=== PATIENT | female | born 1995 | race African-American/Black ===

== ENCOUNTER 2017-07-25 10:40 | Emergency (ER) | payer SELFPAY | END 2017-07-25 13:00 | disposition left against medical advice (07) | LOC: ERS 10:40 | DX: Z53.21 Procedure and treatment not carried out due to patient leaving prior to being seen by health care provider (principal) | CPT/HCPCS: 87081; 87430; 87804 ==

== ENCOUNTER 2018-02-19 08:53 | Emergency (ER) | payer SELFPAY ==
[2018-02-19 09:40] LABS: Bilirubin Negative (Negative); Blood, Urine Negative (Negative); Clarity CLEAR (Clear); Glucose, Urine (Dipstick) Negative (Negative); Leukocyte Small (Negative); Nitrite Negative (Negative); Protein, Urine (Dipstick) Negative (Neg-Trace); Specific Gravity, Urine 1.035 (1.002-1.036); Urobilinogen 0.2 mg/dL (0.2-1.0); pH, Urine 5.5 (5.0-9.0)
[2018-02-19 09:43] LABS: Bacteria/HPF None Seen HPF (None Seen); Hyaline Casts/LPF 0-3 HYALINE CAST LPF (0-3 Hyaline); Pathc Cast-AUWi Flag 0.29 (0-2.49); Pregnancy Test - Urine (BHCG) Negative (Negative); Pregu Control Background? CLEAR/WHITE (CLR/WHITE); Pregu Control Bar Appear? YES (CONTROL BAR); RBC/HPF 0-3 HPF (0-3); Specific Gravity 1.035 (1.002-1.036); Squamous Epithelial 0-3 HPF (0-3)
== END 2018-02-19 10:42 | disposition home or self-care (01) ==
LOC: ERS 08:53
DX: K21.9 Gastro-esophageal reflux disease without esophagitis (principal); F41.9 Anxiety disorder, unspecified; F31.9 Bipolar disorder, unspecified
CPT/HCPCS: 81003; 81015; 81025; 99284

== ENCOUNTER 2018-05-22 16:51 | Emergency (ER) | payer SELFPAY ==
--- NOTE | 2018-05-22 18:27 | RAD ---
RADIOGRAPH LEFT KNEE 4 VIEWS: 05/22/18 HISTORY: 23-year-old female with pain and swelling for two days. FINDINGS: Joint spaces are maintained without erosions or osteophytes. There is no periostitis. No osteolytic, osteoblastic or permeative lesion. No joint effusion or significant edema in Hoffa's fat pad. No soft tissue calcifications or subcutaneous emphysema. IMPRESSION: Normal. POS: CET
== END 2018-05-22 18:49 | disposition home or self-care (01) ==
LOC: ERS 16:51
DX: M25.562 Pain in left knee (principal); F31.9 Bipolar disorder, unspecified

== ENCOUNTER 2018-11-16 23:16 | Emergency (ER) | payer SELFPAY ==
[2018-11-17] MEDS ORDERED: Fluorescein Opthalmic Strip ONE (00:02)
[2018-11-17] MEDS ORDERED: Proparacaine 0.5% Opth 15 ML BOT ONE (00:02)
[2018-11-17] MEDS ORDERED: Atropine Sulfate 1% Ophth Soln 5 ml Bottle L EYE SCH (01:00)
== END 2018-11-17 01:22 | disposition home or self-care (01) ==
LOC: ERS 23:16
DX: H20.9 Unspecified iridocyclitis (principal); F31.9 Bipolar disorder, unspecified
CPT/HCPCS: 99282

== ENCOUNTER 2019-01-08 17:57 | Emergency (ER) | payer BC | END 2019-01-08 19:31 | disposition home or self-care (01) | LOC: ERS 17:57 | DX: R21 Rash and other nonspecific skin eruption (principal); F31.9 Bipolar disorder, unspecified | CPT/HCPCS: 99282 ==

== ENCOUNTER 2019-01-25 17:35 | Emergency (ER) | payer BC | END 2019-01-25 17:51 | disposition home or self-care (01) | LOC: ERS 17:35 | DX: M79.89 Other specified soft tissue disorders (principal); F31.9 Bipolar disorder, unspecified | CPT/HCPCS: 99281 ==

== ENCOUNTER 2019-02-28 17:37 | Emergency (ER) | payer SELFPAY | END 2019-02-28 19:46 | disposition left against medical advice (07) | LOC: ERS 17:37 | DX: Z53.21 Procedure and treatment not carried out due to patient leaving prior to being seen by health care provider (principal) ==

== ENCOUNTER 2019-03-21 09:45 | Emergency (ER) | payer OTHER, SELFPAY ==
[2019-03-21 11:25] LABS: Bilirubin Negative (Negative); Blood, Urine Negative (Negative); Clarity Clear (Clear); Glucose, Urine (Dipstick) Normal (Negative); Leukocyte 500 Leu/uL (Negative); Nitrite Negative (Negative); Pregnancy Test - Urine (BHCG) Negative (Negative); Pregu Control Background? CLEAR/WHITE (CLR/WHITE); Pregu Control Bar Appear? YES (CONTROL BAR); Protein, Urine (Dipstick) Negative (Neg-Trace); RBC/HPF 0-3 HPF (0-3); Specific Gravity 1.025 (1.002-1.036); Urobilinogen Normal mg/dL (Less than 2)
[2019-03-21 11:26] LABS: Bacteria/HPF 1+ HPF (None Seen)
== END 2019-03-21 12:13 | disposition home or self-care (01) ==
LOC: ERS 09:45
DX: N39.0 Urinary tract infection, site not specified (principal)
CPT/HCPCS: 81003; 81015; 81025; 99284

== ENCOUNTER 2019-06-19 23:38 | Emergency (ER) | payer BC, SELFPAY ==
[2019-06-20 00:05] LABS: Pregnancy Test - Urine (BHCG) Negative (Negative); Pregu Control Background? CLEAR/WHITE (CLR/WHITE); Pregu Control Bar Appear? YES (CONTROL BAR); Specific Gravity 1.027 (1.002-1.036)
[2019-06-20] MEDS ORDERED: Ketorolac Tromethamine 60 MG/2 ML VIAL ONE (00:15)
== END 2019-06-20 00:54 | disposition home or self-care (01) ==
LOC: ERS 23:38
DX: N64.4 Mastodynia (principal); F31.9 Bipolar disorder, unspecified; F17.210 Nicotine dependence, cigarettes, uncomplicated
CPT/HCPCS: 36415; 81025; 85379; 96372; 99283; J1885

== ENCOUNTER 2020-12-29 18:15 | Emergency (ER) | payer BC | END 2020-12-29 20:21 | disposition home or self-care (01) | LOC: ERS 18:15 | DX: L02.211 Cutaneous abscess of abdominal wall (principal); F17.210 Nicotine dependence, cigarettes, uncomplicated | CPT/HCPCS: 99283 ==

== ENCOUNTER 2021-01-24 20:57 | Emergency (ER) | payer BC ==
[2021-01-24] MEDS ORDERED: Fluorescein Opthalmic Strip ONE (23:47)
[2021-01-24] MEDS ORDERED: Proparacaine 0.5% Opth 15 ML BOT ONE (23:47)
== END 2021-01-25 00:10 | disposition home or self-care (01) ==
LOC: ERS 20:57
DX: H10.9 Unspecified conjunctivitis (principal); F17.210 Nicotine dependence, cigarettes, uncomplicated
CPT/HCPCS: 99283

== ENCOUNTER 2021-04-16 10:12 | Emergency (ER) | payer BC | END 2021-04-16 11:53 | disposition home or self-care (01) | LOC: ERS 10:12 | DX: L03.115 Cellulitis of right lower limb (principal); F17.210 Nicotine dependence, cigarettes, uncomplicated | CPT/HCPCS: 99283 ==

== ENCOUNTER 2021-05-11 18:09 | Emergency (ER) | payer BC | END 2021-05-11 21:22 | disposition home or self-care (01) | LOC: ERS 18:09 | DX: S83.91XA Sprain of unspecified site of right knee, initial encounter (principal); F17.210 Nicotine dependence, cigarettes, uncomplicated; W17.89XA Other fall from one level to another, initial encounter ==

== ENCOUNTER 2021-05-17 15:11 | Emergency (ER) | payer BC ==
[2021-05-17 22:50] LABS: SARS-CoV-2 PCR by NAA DETECTED (NotDetected)
== END 2021-05-17 15:48 | disposition home or self-care (01) ==
LOC: ERS 15:11
DX: U07.1 COVID-19 (principal); F17.210 Nicotine dependence, cigarettes, uncomplicated
CPT/HCPCS: 99283; U0003; U0005

== ENCOUNTER 2022-06-28 13:16 | Emergency (ER) | payer BC, OTHER ==
[2022-06-28 22:09] LABS: Syphilis Antibody Index 23.67 S/CO (<1.00 Non-Reactive)
[2022-06-28 22:16] LABS: Syphilis Antibody REACTIVE (Nonreactive); Syphilis Titer 1:32 (Negative)
== END 2022-06-28 16:02 | disposition home or self-care (01) ==
LOC: ERS 13:16
DX: Z20.2 Contact with and (suspected) exposure to infections with a predominantly sexual mode of transmission (principal)
CPT/HCPCS: 36415; 86593; 86780; 99283

== ENCOUNTER 2022-07-01 09:41 | Emergency (ER) | payer OTHER ==
[2022-07-01] MEDS ORDERED: Bicillin LA 2.4 MILL.UNITS/4 ML SYRINGE ONE (10:02)
== END 2022-07-01 11:01 | disposition home or self-care (01) ==
LOC: ERS 09:41
DX: A53.9 Syphilis, unspecified (principal)
CPT/HCPCS: J0561

== ENCOUNTER 2024-01-29 18:25 | Emergency (ER) | payer BC, OTHER ==
[2024-01-29] MEDS ORDERED: Ketorolac Tromethamine 30 MG (1 mL) VIAL ONE (20:15)
== END 2024-01-29 20:57 | disposition home or self-care (01) ==
LOC: ERS 18:25
DX: M25.561 Pain in right knee (principal); M25.562 Pain in left knee
CPT/HCPCS: 96372; 99283; J1885

== ENCOUNTER 2024-02-27 14:00 | Emergency (ER) | payer BC, OTHER ==
[2024-02-27 14:41] LABS: #Basophils 0.04 10x3/uL (0.0-0.2); %Eosinophils 6.5 % (0.0-10.0); %Lymphocytes 40.8 % (21.0-51.0); %Monocytes 8.3 % (0.0-10.0); %Neutrophils 43.1 % (42.0-75.0); Hematocrit 34.9 % (36.0-47.0); Hemoglobin 11.6 g/dL (12.0-16.0); Mean Corpuscular HGB CONC 33.2 g/dL (32.0-36.0); Mean Corpuscular Hemoglobin 27.6 pg (27.0-31.0); Mean Corpuscular Volume 83.1 fL (78.0-98.0); Mean Platelet Volume 9.9 fL (7.4-10.4); Platelet Count 230 10x3/uL (130-400); RBC Distribution Width 13.2 % (11.5-14.5)
[2024-02-27 14:56] LABS: ALT (SGPT) 15 U/L (8-55); AST (SGOT) 17 U/L (5-34); Albumin 3.6 g/dL (3.5-5.0); Alkaline Phosphatase 52 U/L (40-110); Anion Gap 9 mmol/L (10-20); BUN (Urea Nitrogen) 11 mg/dL (7.0-18.7); Bilirubin, Total 0.2 mg/dL (0.2-1.2); Calc. Creatinine Clearance 0 mL/min (70-130); Calcium 8.5 mg/dL (7.8-10.44); Carbon Dioxide 24 mmol/L (22-29); Chloride 112 mmol/L (98-107); Estimated GFR 121; Globulin 3.3 g/dL (2.4-3.5); Glucose 91 mg/dL (70-105); Lipase 23 U/L (8-78); Protein, Total 6.9 g/dL (6.0-8.3); Sodium 141 mmol/L (136-145)
[2024-02-27 16:53] LABS: Bacteria/HPF None Seen HPF (None Seen); Bilirubin Negative (Negative); Blood, Urine Trace (Negative); CAUTI Indications for Culture Dysuria,urgency,freq; Clarity Clear (Clear); Glucose, Urine (Dipstick) Normal (Negative); Ketone, Urine Negative (Negative); Leukocyte 25 Leu/uL (Negative); Nitrite Negative (Negative); Protein, Urine (Dipstick) 20 mg/dL (Neg-Trace); RBC/HPF 0-3 HPF (0-3); Specific Gravity, Urine 1.023 (1.002-1.036); Squamous Epithelial 0-3 HPF (0-3); Urobilinogen Normal mg/dL (Less than 2); WBC/HPF 0-3 HPF (0-3)
[2024-02-27 16:54] LABS: Pregnancy Test - Urine (BHCG) Negative (Negative)
[2024-02-27 16:55] LABS: Pregu Control Background? CLEAR/WHITE (CLR/WHITE); Pregu Control Bar Appear? YES (CONTROL BAR); Specific Gravity 1.023 (1.002-1.036); Urine Culture Reflex No No
== END 2024-02-27 17:52 | disposition home or self-care (01) ==
LOC: ERS 14:00
DX: K21.9 Gastro-esophageal reflux disease without esophagitis (principal); R19.7 Diarrhea, unspecified
CPT/HCPCS: 36415; 80053; 81001; 81025; 83690; 85025; 87428; 99283